=== PATIENT | male | born 1955 | race Caucasian/White ===

== ENCOUNTER → 2023-07-30 | Outpatient (CLI) | payer MEDICARE, OTHER ==
--- NOTE | 2023-08-12 23:06 | SLS ---
SLEEP STUDY STUDY PERFORMED: Home study. REPORT: This is a failed study. Cards were downloaded and there was no recording identified. This study needs to be repeated. MMODL / IJN: [id number] /
== END ==
LOC: 3 N SLEEP 16:50
PROVIDERS: ATTEND Internal Medicine Critical Care Medicine
DX: G47.33 Obstructive sleep apnea (adult) (pediatric) (principal)

== ENCOUNTER → 2024-01-02 | Outpatient (CLI) | payer MEDICARE, OTHER ==
--- NOTE | 2024-01-04 20:08 | PE ---
EXAMINATION TYPE: PET CT fusion skull to thigh DATE OF EXAM: 01/02/2024 CLINICAL INDICATION:Male, 68 years old with history of C61 MALIGNANT NEOPLASM OF PROSTATE; TECHNIQUE: Following the intravenous administration of 5.44 mCi of Ga-68 Illuccix (PSMA), whole bod y images are performed from the skull base to the midthigh. Images are reviewed on the computer in t he coronal, axial, and sagittal planes. Reconstructed rotating images are created on independent wor kstation and reviewed on the computer. A non-contrast CT is performed in conjunction with the PET s can. CT DLP: 699 mGycm, Automated exposure control for dose reduction was used. COMPARISON: CT None, PET/CT None, FINDINGS: Mediastinal SUV mean is 2.6. Hepatic parenchyma SUV mean is 5.9. SKULL BASE AND NECK: No suspicious radiotracer activity. CHEST, MEDIASTINUM, AND HILAR REGION: No suspicious radiotracer activity. ABDOMEN AND PELVIS: Intense radiotracer uptake within the prostate gland itself on the left Max SUV 10.9 and on the right max SUV 10.0 involving the mid gland and apex thought to be within predominantly the peripheral zone . MUSCULOSKELETAL STRUCTURES: No suspicious radiotracer activity. OTHER CT: Atherosclerosis including the carotid bifurcations and coronary arteries. The heart is mild ly enlarged for size. Esophageal thickening of gastric pull-through. Right renal cysts. Duplex right renal collecting system. Prostatomegaly. Bilateral fat-containing inguinal hernias. IMPRESSION: Negative chest uptake within the bilateral prostate gland concerning for primary malignancy. No defin itive metastatic disease at this time. Prostate MRI recommended for further evaluation of the prostat e gland.
== END | disposition home or self-care (01) ==
LOC: RADPETMAIN 12:10
PROVIDERS: ATTEND Urology
DX: C61 Malignant neoplasm of prostate (principal)
CPT/HCPCS: 78815; A9596

== ENCOUNTER 2024-03-11 11:30 | Day surgery (SDC) | payer MEDICARE, OTHER ==
[2024-03-11] MEDS ORDERED: LACTATED RINGERS 1,000 ML BAG ONE (12:50)
[2024-03-11] MEDS ORDERED: SODIUM CHLORIDE 0.9% 50 ML BAG ONE (12:50)
[2024-03-11] MEDS ORDERED: ceFAZolin 1,000 MG VIAL ONE (12:50)
[2024-03-11] MEDS ORDERED: PROPOFOL 10 MG/ML 20 ML VIAL IV ONE (12:54)
[2024-03-11] MEDS ORDERED: LIDOCAINE 1% INJ 10MG/ML (20 ML MDV) ONE (12:54)
[2024-03-11] MEDS ORDERED: fentaNYL (PF) 50 MCG/ML 2 ML AMP ONE (12:54)
[2024-03-11] MEDS ORDERED: MIDAZOLAM 2 MG/2 ML VIAL ONE (12:54)
--- NOTE | 2024-03-12 15:58 | OP ---
OPERATIVE REPORT DATE OF SERVICE : 03/11/2024 PREOPERATIVE DIAGNOSIS: Adenocarcinoma of the prostate. POSTOPERATIVE DIAGNOSIS: Adenocarcinoma of the prostate. PROCEDURE PERFORMED: SpaceOAR implant. ANESTHESIA: MAC. ESTIMATED BLOOD LOSS: 5 cc. FLUIDS GIVEN: 200 cc crystalloid. COMPLICATIONS: None. SPECIMENS REMOVED: None. OPERATIVE FINDINGS: Over 15 mm of separation was created between the prostate and rectum. INDICATIONS: The patient is a 68-year-old white male with recently diagnosed prostate cancer. He is being treated with androgen deprivation therapy and IMRT. He now comes for SpaceOAR implant. DESCRIPTION OF PROCEDURE: The patient was taken to the operating room and placed in the dorsal lithotomy position, with his legs supported in Mike stirrups. The perineum and external genitalia were prepped and draped sterilely. 1% lidocaine was injected into the midline of the perineum subcutaneously for anesthesia. The [employer] transrectal ultrasound probe was placed within the rectum, and then secured to the stabilizing stand, so that the prostate could be imaged. The SpaceOAR treatment needle was passed through the perineal skin and advanced under ultrasonic guidance into the space between the prostate and rectum. The SpaceOAR constituents were prepared in the standard fashion, then injected. Care was taken to ensure that injection was in the midline, at the level of the mid gland. Over 15 mm of separation was created between the prostate and rectum. The ultrasound probe was removed, and the procedure was terminated. The patient tolerated the procedure well, was taken to the recovery room in stable condition. MMODL / IJN: [id number] /
--- NOTE | 2024-04-02 11:19 | HP ---
HISTORY AND PHYSICAL DATE OF OUTPATIENT SURGERY: 03/11/2024 CHIEF COMPLAINT: Prostate cancer. HISTORY OF PRESENT ILLNESS: The patient is a 68-year-old white male with recently diagnosed prostate cancer. Recent PSA levels were 12.1 and 10.50. The prostate volume is 27 cubic centimeter. Seven of twelve biopsies showed evidence of malignancy, predominantly left sided with a maximum Estela score of 4+3. Firmness of the left prostatic lobe is noted. Metastatic evaluation was negative. The patient has elected to be treated with androgen deprivation therapy and IMRT. He now comes for SpaceOAR implant. PAST MEDICAL HISTORY: Hypertension, erectile dysfunction, COPD, history of esophageal carcinoma. MEDICATIONS: Bumetanide, Celebrex, lisinopril, metoprolol, pantoprazole, Plendil, spironolactone, tadalafil, vitamin D, albuterol inhaler. ALLERGIES: IV contrast. PAST SURGICAL HISTORY: Esophagectomy with gastric pull up. FAMILY HISTORY: Negative for prostate cancer. SOCIAL HISTORY: The patient is . He is a former smoker. REVIEW OF SYSTEMS: RESPIRATORY: Significant for dyspnea. CARDIOVASCULAR: Significant for high blood pressure. GENITOURINARY: Significant for urinary frequency. PHYSICAL EXAMINATION: GENERAL: The patient is a well-developed, well-nourished cooperative white male, in no apparent distress. VITAL SIGNS: Pulse 82, respirations 17, blood pressure 132/78. CHEST: Normal respiratory effort. ABDOMEN: Soft, nontender. No mass. A right inguinal hernia is noted. GENITOURINARY: Normal phallus. Normal testes. Prostate is mildly enlarged with left sided firmness and asymmetrical enlargement. IMPRESSION: Adenocarcinoma of the prostate. PLAN: SpaceOAR implant. The rationale for this has been reviewed in detail with the patient along with potential risks which include anesthesia, bleeding, and infection. The patient has been made aware of the fact that if rectal perforation occurs during the procedure, the SpaceOAR implant will need to be aborted. MMODL / IJN: [id number] /
== END 2024-03-11 14:07 ==
LOC: OR 11:30
PROVIDERS: ATTEND Urology
DX: C61 Malignant neoplasm of prostate (principal); I10 Essential (primary) hypertension; J44.9 Chronic obstructive pulmonary disease, unspecified; Z85.01 Personal history of malignant neoplasm of esophagus; Z87.891 Personal history of nicotine dependence; Z90.49 Acquired absence of other specified parts of digestive tract; Z79.899 Other long term (current) drug therapy

== ENCOUNTER 2024-09-23 11:26 | Day surgery (SDC) | payer MEDICARE, OTHER ==
[2024-09-23] MEDS ORDERED: LACTATED RINGERS 1,000 ML IV SCH (11:44)
[2024-09-23 11:48] VITALS: TEMP 97.1
[2024-09-23] MEDS: IV FLUID CONTINUATION 1,000 ML IV ONE (11:48)
[2024-09-23] MEDS: LACTATED RINGERS 1,000 ML IV SCH (11:59)
[2024-09-23] MEDS ORDERED: PROPOFOL 10 MG/ML 20 ML VIAL IV ONE (12:05)
[2024-09-23] MEDS ORDERED: LIDOCAINE 2% (PF) 20 MG/ML 5 ML VIAL ONE (12:05)
--- NOTE | 2024-09-23 12:10 | P.GSHP ---
History of Present Illness H&P Date: 09/23/24 CHIEF COMPLAINT: GERD and colon screen HISTORY OF PRESENT ILLNESS: The patient is a 69-year-old male who presents with gastroesophageal reflux disease and need for colon screen. Upper and lower endoscopy were offered for further evaluation and management. PAST MEDICAL HISTORY: Please see list. PAST SURGICAL HISTORY: Please see list. MEDICATIONS: Please see list. ALLERGIES: Please see list. SOCIAL HISTORY: No illicit drug use FAMILY HISTORY: No reports of Crohn disease or ulcerative colitis. REVIEW OF ORGAN SYSTEMS: CONSTITUTIONAL: No reports of fevers or chills. GI: Denies any blood in stools or constipation. PHYSICAL EXAM: VITAL SIGNS: Stable GENERAL: Well-developed pleasant in no acute distress. HEENT: No scleral icterus. Extraocular movements grossly intact. Moist buccal mucosa. NECK: Supple without lymphadenopathy. CHEST: Unlabored respirations. Equal bilateral excursions. CARDIOVASCULAR: Regular rate and rhythm. Distal 2+ pulses. ABDOMEN: Soft, nondistended. MUSCULOSKELETAL: No clubbing, cyanosis, or edema. ASSESSMENT: 1. Gastroesophageal reflux disease 2. Colon screen. PLAN: 1. Recommend proceeding with an upper and lower endoscopy Past Medical History Past Medical History: Cancer, Heart Failure, COPD, GERD/Reflux, Hearing Disorder / Deafness, Hypertension, Prostate Disorder, Respiratory Disorder, Skin Disorder Additional Past Medical History / Comment(s): Pt reports some doctors have said CHF some have said COPD, does have lower extremity edema and SOB with exertion. esophogeal cancer 2014 recieved chemo/radiation surgery), prostate cancer Jul 2024 completed radiation, new puritic rash to back History of Any Multi-Drug Resistant Organisms: None Reported Past Surgical History: Hernia Repair, Tonsillectomy Additional Past Surgical History / Comment(s): Esophogectomy, hiatal hernia repain, abdominal hernia repair Past Anesthesia/Blood Transfusion Reactions: Previous Problems w/ Anesthesia Additional Past Anesthesia/Blood Transfusion Reaction / Comment(s): reports has been slow to wake up in the past Smoking Status: Former smoker - Past Family History Mother Family Medical History: No Reported History Medications and Allergies Home Medications Medication Instructions Recorded Confirmed Type Bumetanide [BUMEX] 2 mg PO DAILY 09/22/24 09/23/24 History Cholecalciferol [Vitamin D3 (25 1 tab PO DAILY 09/22/24 09/23/24 History Mcg = 1000 Iu)] Felodipine [Plendil] 10 mg PO DAILY 09/22/24 09/23/24 History Fexofenadine HCl 180 mg PO DAILY 09/22/24 09/23/24 History Metoprolol Tartrate [Lopressor] 50 mg PO BID 09/22/24 09/23/24 History Pantoprazole [Protonix] 40 mg PO DAILY 09/22/24 09/23/24 History Spironolactone 25 mg PO DAILY 09/22/24 09/23/24 History lisinopriL [Prinivil] 10 mg PO BID 09/22/24 09/23/24 History tadalafiL 5 mg PO DAILY PRN 09/22/24 09/23/24 History Allergies Allergy/AdvReac Type Severity Reaction Status Date / Time Iodinated Contrast Media Allergy Rash/Hives Verified 09/23/24 11:44 Surgical - Exam Vital Signs Temp Pulse Resp BP Pulse Ox 97.1 F L 94 16 141/72 96 09/23/24 11:47 09/23/24 11:47 09/23/24 11:47 09/23/24 11:47 09/23/24 11:47
--- NOTE | 2024-09-23 12:28 | P.PCN ---
Date of Procedure: 09/23/24 Description of Procedure: PREOPERATIVE DIAGNOSIS: Dysphagia. History of esophagectomy POSTOPERATIVE DIAGNOSIS: Dysphagia. 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 SURGEON: Norma Spann MD ANESTHESIA: MAC. INDICATIONS: The patient is a 69-year-old male who presents with dysphagia. He reports troubles with swallowing pills along her upper throat. Upper endoscopy was o ffered for further diagnostic evaluation and treatment. DESCRIPTION: The patient was brought into the endoscopy suite and laid in the left lateral decubitus position. An Olympus gastroscope was carefully passed along the posterior oropharynx. Upon entry into the proximal esophagus, a mild stricture from prior esophagectomy at 25 cm from the incisors identified. Gastric pull- through was identified. The stomach was entered. The scope was passed to the second portion and third portion of the duodenum. Retroflexion of the scope confirmed Hill grade 4 lower esophageal valve from esophagectomy which is appropriate. A guidewire was placed through the scope into the stomach. The scope was removed. A 60-Azerbaijani rigid dilator was placed to 45 cm from the incisors. The dilator was left in place between 2-3 minutes. The dilator and guidewire were removed. The scope was reentered along the proximal esophagus whereby the stricture had resolved of the upper esophagus. No full-thickness injury was found along the mucosa. The stomach was desufflated. The patient tolerated the procedure well. FINDINGS: Presence of esophagectomy and gastric pull-through anastomosis at 25 cm from the incisors Hill grade 4 lower esophageal valve, appropriate due to gastric pull-through. Esophageal anastomotic stricture dilated from 51 Azerbaijani to 60 Azerbaijani using 60 Azerbaijani rigid Turkmen dilator RECOMMENDATIONS: Upper endoscopy as needed.
--- NOTE | 2024-09-23 12:49 | P.PCN ---
Date of Procedure: 09/23/24 Description of Procedure: PREOPERATIVE DIAGNOSIS: Colonoscopy screening POSTOPERATIVE DIAGNOSIS: Tubular adenoma descending colon OPERATION: Colonoscopy to the ileocecal valve and appendiceal orifice, cecum Colonoscopy with hot snare polypectomy SURGEON: Norma Spann MD. ANESTHESIA: MAC. INDICATIONS: The patient is an 69-year-old male who presents family history of malignant colon polyps and personal history of colon polyps. Last colonoscopy 5 years. Benefits and risks were described and informed consent was obtained. DESCRIPTION OF PROCEDURE: The patient had undergone GoLytely prep. The patient had been brought into the operating room and laid in the left lateral decubitus position. After adequate intravenous sedation, the rectum was examined with 2% lidocaine jelly. The prostate fossa was unremarkable. External hemorrhoids were encountered. The rectal tone was within normal limits. No lesions were palpated in the rectal vault. An Olympus colonoscope was advanced until the cecum, ileocecal valve and appendiceal orifice were clearly viewed. The prep was good. No sigmoid diverticulosis was encountered. Colonic polyps were found and removed. No evidence of focal colitis was found. Retroflexion of the scope demonstrated grade 2 internal hemorrhoids without active bleeding or inflammation. The colon was desufflated. The patient had tolerated the procedure well. Withdrawal time was over 6 minutes. FINDINGS: Aronchick preparation quality scale 2 (1-5) Internal hemorrhoids, grade 2 External hemorrhoids, grade 2. No arteriovenous malformations. No sigmoid diverticulosis Removal of 1 polyps: - Snare polypectomy 30 cm from the anal verge, 12 mm tubulovillous adenoma RECOMMENDATIONS: Repeat colonoscopy 3 years, 2027 Plan - Discharge Summary New Discharge Prescriptions: Continue Pantoprazole [Protonix] 40 mg PO DAILY lisinopriL [Prinivil] 10 mg PO BID Cholecalciferol [Vitamin D3 (25 Mcg = 1000 Iu)] 1 tab PO DAILY Fexofenadine HCl 180 mg PO DAILY Bumetanide [BUMEX] 2 mg PO DAILY tadalafiL 5 mg PO DAILY PRN PRN Reason: Per Protocol Spironolactone 25 mg PO DAILY Metoprolol Tartrate [Lopressor] 50 mg PO BID Felodipine [Plendil] 10 mg PO DAILY Discharge Medication List Bumetanide [BUMEX] 2 mg PO DAILY 09/22/24 [History] Cholecalciferol [Vitamin D3 (25 Mcg = 1000 Iu)] 1 tab PO DAILY 09/22/24 [History] Felodipine [Plendil] 10 mg PO DAILY 09/22/24 [History] Fexofenadine HCl 180 mg PO DAILY 09/22/24 [History] Metoprolol Tartrate [Lopressor] 50 mg PO BID 09/22/24 [History] Pantoprazole [Protonix] 40 mg PO DAILY 09/22/24 [History] Spironolactone 25 mg PO DAILY 09/22/24 [History] lisinopriL [Prinivil] 10 mg PO BID 09/22/24 [History] tadalafiL 5 mg PO DAILY PRN 09/22/24 [History] Follow up Appointment(s)/Referral(s): Norma Spann MD [STAFF PHYSICIAN] - 10/05/24 9:15 am Patient Instructions/Handouts: *Surgery [facility] - (Anesthesia) Discharge Instructions Outpatient Surgery, Colonoscopy (DC), Colorectal Polyps (GEN), Esophageal Dilation (GEN) Activity/Diet/Wound Care/Special Instructions: Soft food diet today. Repeat colonoscopy 3 years, 2027 Discharge Disposition: HOME SELF-CARE
[2024-09-23 13:12] VITALS: BP 127/78; PULSE 78; RESP 18
== END 2024-09-23 13:20 | disposition home or self-care (01) ==
LOC: ORWHC2ENDO 11:26
PROVIDERS: ATTEND Surgery Plastic and Reconstructive Surgery
DX: Z12.11 Encounter for screening for malignant neoplasm of colon (principal); D12.4 Benign neoplasm of descending colon; K64.1 Second degree hemorrhoids; K64.4 Residual hemorrhoidal skin tags; K22.89 Other specified disease of esophagus; K91.89 Other postprocedural complications and disorders of digestive system; K21.9 Gastro-esophageal reflux disease without esophagitis; Z86.0100 Personal history of colon polyps, unspecified; Z80.0 Family history of malignant neoplasm of digestive organs; I11.0 Hypertensive heart disease with heart failure; I50.9 Heart failure, unspecified; J44.9 Chronic obstructive pulmonary disease, unspecified; H91.90 Unspecified hearing loss, unspecified ear; N40.0 Benign prostatic hyperplasia without lower urinary tract symptoms; I25.10 Atherosclerotic heart disease of native coronary artery without angina pectoris; Z85.01 Personal history of malignant neoplasm of esophagus; Z85.46 Personal history of malignant neoplasm of prostate; Z92.21 Personal history of antineoplastic chemotherapy; Z92.3 Personal history of irradiation; Z87.891 Personal history of nicotine dependence; Z90.49 Acquired absence of other specified parts of digestive tract; Z98.890 Other specified postprocedural states; Z90.89 Acquired absence of other organs; Z79.899 Other long term (current) drug therapy; Z91.041 Radiographic dye allergy status
CPT/HCPCS: 88305; 45385; 43248; J2704; J2003